=== PATIENT | female | born 2000 | race Asian ===

== ENCOUNTER 2023-08-12 11:44 | Outpatient (CLI) | payer BC, SELFPAY | END 2023-08-12 11:45 | disposition home or self-care (01) | PROVIDERS: Visit Provider Obstetrics & Gynecology | DX: Z34.91 Encounter for supervision of normal pregnancy, unspecified, first trimester (principal); R35.0 Frequency of micturition | CPT/HCPCS: 84144; 84443; 84702; 86592; 86703; 86704; 86706; 86762; 86787; 86803; 86850; 86900; 86901; 87086; 87340 ==

== ENCOUNTER 2023-08-18 14:48 | Outpatient (CLI) | payer BC, SELFPAY ==
--- NOTE | 2023-08-18 15:00 | US_ITS ---
Patient: STANISLAW ENGLE Facility:?[facility] Patient ID:?[id number] Site Patient ID:?[id number]. Site :?2000 Study:?US-OB Pelvis TRANSVAGINAL-08/18/2023 3:27:32 PM Ordering Physician:?IVET URENA Final Report: INDICATION: . Recent miscarriage. TECHNIQUE: Transabdominal and transvaginal ultrasound examination of the pelvis was performed. Grayscale and color Doppler images were obtained. COMPARISON: None. FINDINGS: Uterus: Intrauterine gestational sac with mean sac diameter of 1.4 cm common compatible with estimated gestational age of 6 weeks and 2 days. Yolk sac: Within normal limits. heart tones: Present. 97 beats per minute. Bunkie-rump length: 3 mm, compatible with an estimated gestational age of 5 weeks and 6 days. Endometrium: Unremarkable Right Ovary: Measures 4.2 x 2.7 x 3.4 cm. Corpus luteal cyst. Otherwise, unremarkable. Normal arterial and venous flow on color Doppler imaging. Left ovary: Measures 3.6 x 1.5 x 2.0 cm. No suspicious masses. Normal arterial and venous flow on color Doppler imaging. Cul-de-sac: No free fluid. IMPRESSION: Single viable intrauterine with estimated gestational age of 5 weeks and 6 days by crown-rump length. Estimated due date of 04/13/2024. Dictated by Xavier Olivas MD @ 08/18/2023 11:20:29 PM Signed by:?Xavier Olivas MD @08/18/2023 11:20:29 PM (Electronic Signature)
== END 2023-08-18 14:49 | disposition home or self-care (01) ==
LOC: US 14:48
PROVIDERS: Visit Provider Obstetrics & Gynecology
DX: N96 Recurrent pregnancy loss (principal); Z32.00 Encounter for pregnancy test, result unknown; Z34.91 Encounter for supervision of normal pregnancy, unspecified, first trimester; Z3A.01 Less than 8 weeks gestation of pregnancy
CPT/HCPCS: 76817

== ENCOUNTER 2023-09-06 16:44 | Outpatient (CLI) | payer BC, SELFPAY ==
--- NOTE | 2023-09-06 17:00 | US_ITS ---
Patient: STANISLAW ENGLE Facility:?[facility] Patient ID:?[id number] Site Patient ID:?[id number]. Site :?2000 Study:?US-OB Pelvis OB TV-09/06/2023 5:43:47 PM Ordering Physician:SPEEDY DUTTON Final Report: INDICATION: Follow-up viability COMPARISON: 08/18/2023 TECHNIQUE: Real-time nicole-scale imaging of the pelvis was performed. FINDINGS: Sonographic imaging demonstrates a single living intrauterine gestation. The embryo demonstrates a regular cardiac rate measuring 180 beats per minute. The embryo`s crown-rump length measurement of 2.1 cm corresponds to a gestational age of 8 weeks 5 days with a sonographic due date of 04/12/2024. There is a normal-appearing yolk sac. There are no gross abnormalities noted within the embryo at this early state of development. The gestational sac has a normal appearance. There is no evidence of a perigestational hemorrhage. The amount of fluid within the sac appears appropriate for gestational age. The cervix is closed. The myometrium appears normal. The ovaries are of normal size. Corpus luteal cyst right ovary. There are no suspicious fluid collections noted in the cul-de-sac. IMPRESSION: Normal first trimester OB ultrasound exam. Gestational age calculated at 8 weeks 5 days with a sonographic due date of 04/12/2024. Dictated by Rodo Yusuf MD @ 09/07/2023 10:37:51 AM Signed by:?Rodo Yusuf MD @09/07/2023 10:37:51 AM (Electronic Signature)
== END 2023-09-06 16:45 | disposition home or self-care (01) ==
LOC: US 16:45
PROVIDERS: Visit Provider Advanced Practice Midwife
DX: Z34.91 Encounter for supervision of normal pregnancy, unspecified, first trimester (principal); Z3A.08 8 weeks gestation of pregnancy
CPT/HCPCS: 76817; 87086

== ENCOUNTER 2023-11-22 13:45 | Outpatient (CLI) | payer BC, SELFPAY ==
--- NOTE | 2023-11-22 14:00 | US_ITS ---
Patient: STANISLAW ENGLE Facility:?[facility] Patient ID:?[id number] Site Patient ID:?[id number]. Site :?2000 Study:?US-OB Pelvis OB ANATOMY-11/22/2023 3:14:00 PM Ordering Physician:SPEEDY DUTTON CNM Final Report: OB ULTRASOUND EVER by US: 04/13/2024. GA: 19 w, 4 d. INDICATION: anatomy. COMPARISON: 09/06/2023. FINDINGS: position: Vertex. Cervix: Visualized. Technique: Transabdominal. Length of closed cervix: 3.6 cm. Placenta/cord: Posterior. Technique: Transabdominal. Placenta tip to internal OS: 6.4 cm. Umbilical Cord: 3-vessel cord. Placenta insertion: Central. Amniotic Fluid: 5.6 cm SDP SURVEY: Observed Structures Cerebellum: Yes. 2.1 cm; 21 w 1 d. Cisterna Magna: Yes. 4.4 mm. Nuchal Fold: Yes. 4.2 mm. Lateral Ventricle: Yes. 6.5 mm. CSP: Yes. Midline Falx: Yes. Choroid Plexus: Yes. Spine: Yes. Stomach: Yes. Abd Cord Insertion: Yes. Urinary Bladder: Yes. Kidneys: Yes. Diaphragm: Yes. Nose/lips: Yes. Orbital view: Yes. Profile: Yes. Upper Extremities: Yes. Lower Extremities: Yes. Hands: Yes. Feet: Yes. Four-Chamber Heart: Yes. LVOT: Yes. RVOT: Yes. 3VV: Yes. 3VTV: Yes. BPD: 4.7 cm. 20 w 2 d, 80%. HC: 17.8 cm. 20 w 2 d, 73%. AC: 14.0 cm. 19 w 3 d, 39%. FL: 2.9 cm. 19 w 0 d, 24.7%. FL/AC: 21.0%. HC/AC Ratio: 1.27. Heart rate: 147 beats per minute. age by this US: 20 w 0 d. EVER by this US: 04/10/2024. EFW: 288.38 g. Weight: 10 oz. Percentile by EVER: 34%. IMPRESSION: 1. Measurements are consistent with dates. Good interval growth since prior exam. 2. Normal anatomic survey. Jeremy Hoang M.D. Body/Diagnostic Radiologist [email or web address] MARY JO/ameena D& Transcribed: 12:59 p.mEnrike lindquist/Dictated by: Jeremy Hoang MD @ 11/23/2023 10:27:00 AM Signed by:?Jeremy Hoang MD @11/23/2023 2:54:28 PM (Electronic Signature)
== END 2023-11-22 13:46 | disposition home or self-care (01) ==
LOC: US 13:46
PROVIDERS: Visit Provider Advanced Practice Midwife
DX: Z34.92 Encounter for supervision of normal pregnancy, unspecified, second trimester (principal); Z3A.19 19 weeks gestation of pregnancy
CPT/HCPCS: 76805

== ENCOUNTER 2024-01-08 12:08 | Outpatient (CLI) | payer BC, SELFPAY ==
[2024-01-08] VITALS (12 sets, daily range): BP systolic 130–136; BP diastolic 71–80; PULSE 93–110; RESP 16; TEMP 36.5; O2SAT 96–97
[2024-01-08] MEDS: CALCIUM CARBONATE 500 MG CHEW PO (13:13)
[2024-01-08 13:32] LABS: Hematocrit 33.2 % (33.0-51.0); Hemoglobin* 11.2 gm/dL (12.0-16.0); Mean Corpuscular HGB Conc 34 gm/dL (32-36); Mean Corpuscular Hemoglobin 31 pg (26-34); Mean Corpuscular Volume 93 fL (80-100); Platelet Count* 218 K/uL (140-440); Red Blood Count 3.57 m/uL (4.00-5.20); White Blood Count* 10.47 K/uL (4.50-11.00)
[2024-01-08 13:34] LABS: Alanine Aminotransferase* 20 U/L (4-35); Aspartate Amino Transferase* 20 U/L (12-35); Blood Urea Nitrogen* 9 mg/dL (5-24); Creatinine* 0.5 mg/dL (0.5-1.5); Estimated Glomerular Filt Rate 134 ml/min
[2024-01-08 13:37] LABS: Total Protein Urine 16 mg/dL
[2024-01-08 13:38] LABS: Creatinine Urine 107.5 mg/dL; Protein Creatinine Ratio Urine 0.15 (0-0.19)
[2024-01-08 13:39] LABS: Slide Review Reflex No
--- NOTE | 2024-01-08 14:40 | PC.OBNST ---
NST Note NST Note Start: 01/08/24 12:02 Freq: ONCE Status: Active Protocol: Document 01/08/24 13:45 LUIS (Rec: 01/08/24 14:40 LUIS Desktop) NST Note 3 Para (# of births) 0 EDC 04/13/24 Gestational Age In Weeks & Days 26 Weeks & 2 Days Patient Presented with Complaint(s) of Headache,Other Other Complaints Dizziness/Fatigue Reactive Yes Appropriate for Gestational Age Yes CHARLENE Pack, RNC Date 01/08/24 Reactive Yes Appropriate for Gestational Age Yes CHARLENE Gloria, RNC Date 01/08/24 OB NST charge Yes Complete NST Note via Write Note Yes The provider's electronic signature indicates the NST is reactive/appropriate for gestational age. *Note to provider: If an addendum is required, open the patient's chart and click on the note under the Nurse/Allied Health tab.
== END 2024-01-08 14:10 | disposition home or self-care (01) ==
LOC: OB OUT 12:09 → OB 12:14
PROVIDERS: Visit Provider Advanced Practice Midwife
DX: O26.892 Other specified pregnancy related conditions, second trimester (principal); R51.9 Headache, unspecified; R53.83 Other fatigue; Z3A.26 26 weeks gestation of pregnancy
CPT/HCPCS: 36415; 59025; 82565; 82570; 84156; 84450; 84460; 84520; 85027; G0463; A9270

== ENCOUNTER 2024-01-24 10:01 | Outpatient (CLI) | payer BC, SELFPAY | END 2024-01-24 10:02 | disposition home or self-care (01) | LOC: NFLDREF 01-26 09:48 | PROVIDERS: Visit Provider Advanced Practice Midwife | DX: Z34.93 Encounter for supervision of normal pregnancy, unspecified, third trimester (principal) | CPT/HCPCS: 86592 ==

== ENCOUNTER 2024-03-19 10:43 | Outpatient (CLI) | payer BC, SELFPAY ==
[2024-03-20 10:49] LABS: Strep B DNA Probe POSITIVE (Negative)
[2024-03-20 12:47] LABS: Strep B Susceptibility Needed? No
== END 2024-03-19 10:44 | disposition home or self-care (01) ==
PROVIDERS: Visit Provider Advanced Practice Midwife
DX: Z34.93 Encounter for supervision of normal pregnancy, unspecified, third trimester (principal); O99.713 Diseases of the skin and subcutaneous tissue complicating pregnancy, third trimester; L29.9 Pruritus, unspecified; R35.0 Frequency of micturition; Z3A.36 36 weeks gestation of pregnancy
CPT/HCPCS: 82239; 84450; 84460; 87081; 87653

== ENCOUNTER 2024-03-26 09:45 | Outpatient (CLI) | payer BC, SELFPAY | END 2024-03-26 09:46 | disposition home or self-care (01) | PROVIDERS: Visit Provider Advanced Practice Midwife | DX: Z34.83 Encounter for supervision of other normal pregnancy, third trimester (principal) | CPT/HCPCS: 82565; 82570; 84156; 84450; 84460; 84520 ==

== ENCOUNTER 2024-04-07 22:08 | Inpatient (IN) | payer BC, SELFPAY ==
[2024-04-07] VITALS (15 sets, daily range): BP systolic 126–144; BP diastolic 61–86; PULSE 82–102; RESP 16; TEMP 36.7–37.1; O2SAT 97
[2024-04-07 19:33] LABS: Hematocrit 35.3 % (33.0-51.0); Hemoglobin* 11.3 gm/dL (12.0-16.0); Mean Corpuscular HGB Conc 32 gm/dL (32-36); Mean Corpuscular Hemoglobin 29 pg (26-34); Mean Corpuscular Volume 91 fL (80-100); Platelet Count* 200 K/uL (140-440); Red Blood Count 3.87 m/uL (4.00-5.20); White Blood Count* 10.02 K/uL (4.50-11.00)
[2024-04-07 19:34] LABS: Slide Review Reflex No
[2024-04-07 19:54] LABS: Alanine Aminotransferase* 14 U/L (4-35); Aspartate Amino Transferase* 21 U/L (12-35); Blood Urea Nitrogen* 13 mg/dL (5-24); Creatinine* 0.5 mg/dL (0.5-1.5); Estimated Glomerular Filt Rate 134 ml/min
[2024-04-07 20:27] LABS: Total Protein Urine 8 mg/dL
[2024-04-07 20:28] LABS: Creatinine Urine 113.5 mg/dL; Protein Creatinine Ratio Urine 0.07 (0-0.19)
--- NOTE | 2024-04-07 22:03 | P.LDBA_ITS ---
Subjective History of Present Illness Date Seen: 04/07/24 Narrative: Anitha is being admitted to Labor and Delivery for induction of labor. She is a 23 year old at 39.1 weeks gestation. Her full history and physical was dictated by Zhang Jacob CNM on 03/26/24. Please see this for details. Anitha presented earlier today with complaints of decreased movement and possibly leaking fluids. She was AmniSure negative and had a reactive NST at that time. She also complained of elevated blood pressures on her home blood pressure cuff, a headache, and seeing spots. Her blood pressures and labs were normal at that time and she was cleared for discharge. She returns this evening with continued intermittent headaches, occasional spots in her vision with blurred in her right eye, and epigastric pain that radiates to her right posterior shoulder. Her face, hands and feet are edematous but not pitting. She also complains of SOB that is intermittent and occurs at rest and with activity. She states that all of these symptoms have been happening for the last couple of days. Labs were aga in normal and blood pressures 130's/60's. We discussed that being normotensive and normal labs that she doesn't meet criteria at this time for gestational hypertension or preeclampsia. However with her symptoms and being over 39 weeks that an induction could be considered. Also gave her the option of returning home with close monitoring of symptoms and returning tomorrow for a blood pressure check. After questions were answered and she discussed with her partner they decided they would like to stay for an induction starting this evening. SVE was 0.5/thick/-3. Discussed options of a cook catheter, Cytotec and Pitocin. Risks and benefits or each method were discussed. She would like to proceed with vaginal Cyotec for IOL and will consider following with Pitocin titration if needed. She is shira occasionally but only a few she is feeling as more uncomfortable with the rest begin a tightening. Specific Issues/Plans : Max 1. Hx asthma, hasn't used an inhaler in many years. 2. Hx depression. Not on medications and no current concerns. 3. SAB after a chemical . Taking ASA. 4. Allergic to ibuprofen and acetaminophen. 5. Near syncope at 26 weeks c/o MUJICA for 3 days- Rx reglan for home PreE labs WNL, BPs mildly elevated 130/80's 6. New onset of pruritus at 36 weeks on palms and soles of feet. Labs AST-22, ALT-15 bile acids-4 7. GBS positive Needs pap PP. OB - Problem Based A/P Additional Plan (1) Encounter for induction of labor: Status: Acute (2) 39 weeks gestation of : Status: Acute Plan ASSESSMENT:? at 39.1 weeks gestation? GBS positive? complicated by: remote history of asthma, recurrent SAB, GBS positive, headache/visual disturbance without diagnosis? Elective IOL? Blood type:?A+ ?? PLAN:? 1. Antibiotic prophylaxis treatment per protocol. Will begin treatment with active labor or ROM.? 2. Reviewed risks and benefits of IOL with pitocin vs cytotec vs Cook catheter. Pt prefers cytotec. Pitocin to follow if needed.? 3. Desires water . Consent signed. Hep C negative.? 4. Candidate for analgesia of choice. Planning unmedicated .? 5. Monitor blood pressures. Consider repeating labs if continue to increase.? 6. Anticipate ? 7. Expectant management at this time.? 8. IV placement not needed at this time. Consider with increases blood pressures or changes in patient condition. Low threshold for considering placement. 9. Monitoring per Cytotec policy at this time. Delivery/Labor/Induction Plan Plan: induction Induction method: per misoprostol protocol OB Result Labs Blood Type: A (+) positive GBS Status: positive OB Exam Physical Exam Vital signs: Temp Pulse Resp BP 98.7 F 85 16 144/71 H 04/07/24 19:18 04/07/24 21:44 04/07/24 19:18 04/07/24 21:44 Narrative: Psychiatric:? Alert and oriented x3? HEENT:? Normocephalic, atraumatic? Neck:? Supple without adenopathy or thyromegaly? Lungs:? Clear to auscultation bilaterally? Heart:? Regular rate and rhythm, no murmur, rub or gallop? Abdomen:? Soft, nontender, and gravid? Extremities:? No erythema, 2+ edema? Detailed Labor and Delivery Exam Patient Gravid: Yes Dilation (cm): 0 (0.5) Cervix position: mid Consistency: medium Contraction Frequency: 4-9 Contraction intensity: Mild Fetus (Single) Station: -3 Amniotic Membrane Status: intact Heart Rate Baseline: 135 Monitor Accelerations: Present Monitor Decelerations: None [place] Paver Operator Variability: Moderate (6-25) (occaional marked variability )
[2024-04-07] MEDS: miSOPROStoL 25 MCG/0.25 TABLET VAGINAL (23:11)
[2024-04-07] MEDS: CALCIUM CARBONATE 500 MG CHEW PO (23:36)
[2024-04-08] VITALS (15 sets, daily range): BP systolic 103–141; BP diastolic 61–93; PULSE 74–96; RESP 15–17; TEMP 36.8–37.2; O2SAT 99; BMI 40.1
[2024-04-08] MEDS: miSOPROStoL 25 MCG/0.25 TABLET VAGINAL ×2 (02:13→05:17)
[2024-04-08] MEDS: ONDANSETRON ODT 4 MG TAB PO ×2 (05:05→21:00)
--- NOTE | 2024-04-08 11:19 | P.OBPN_ITS ---
Subjective Time Seen by Provider: 11:00 Date Seen: 04/08/24 Narrative: Anitha received multiple doses of Cytotec overnight and has been shira regularly this morning. The last dose was held as she was shira every 2-4 minutes although she is only feeling some of them uncomfortably and the rest only feel as tightening. A SVE was performed and she was found to be 1/40/-3. She was given the option to wait for another 1-2 hours to see if she contractions spaced enough to consider another dose. Also discussed pivoting and trying a cook catheter or Pitocin titration. Risks/benefits of each were discussed and questions answered. After discussion with her partner she decided to try Pitocin. Objective Vital Signs: Last Vital Signs Temp 98.2 F 04/08/24 08:05 Pulse 93 04/08/24 08:05 Resp 16 04/08/24 08:05 BP 130/73 04/08/24 08:05 Pulse Ox 97 04/07/24 23:03 Pelvic Exam Dilation (cm): 1 Effacement (%): 40 Station: -3 Contractions Monitor mode: External Contraction Frequency: 2-4 Contraction pattern: Regular Contraction intensity: Mild Assessment Assessment: induction ongoing Station: -3 Heart Rate Baseline: 145 Residential Variability: Moderate (6-25) Monitor Accelerations: Present Monitor Decelerations: None Plan Plan: ASSESSMENT:? at 39.2 weeks gestation? GBS positive? complicated by: remote history of asthma, recurrent SAB, GBS positive, headache/visual disturbance without diagnosis? Elective IOL? Blood type:?A+ ?? PLAN:? 1. Antibiotic prophylaxis treatment per protocol. Will begin treatment with active labor or ROM.? 2. Reviewed risks and benefits of continuing IOL with cytotec switching to Cook catheter or Pitocin titration. Pt prefers to switch to Pitocin titration.? 3. Desires water . Consent signed. Hep C negative.? 4. Candidate for analgesia of choice. Planning unmedicated .? 5. Monitor blood pressures. Consider repeating labs if continue to increase.? 6. Anticipate ? 7. Expectant management at this time.? 8. IV placement for Pitocin administration. 9. Monitoring per Pitocin policy at this time.
[2024-04-08] MEDS: LACTATED RINGERS 1000 ML 1,000 ML 125 ML IV (12:48)
[2024-04-08] MEDS: OXYTOCIN 30 unit/500 ML in NS 30 UNIT/500 ML BAG IVPB (12:48)
[2024-04-08 15:44] LABS: Basophils Absolute Auto 0.02 K/uL (0.00-0.30); Basophils Percent Auto 0.2 % (0.0-3.0); Eosinophils Absolute Auto 0.32 K/uL (0.00-0.50); Eosinophils Percent Auto 3.4 % (0.0-7.0); Hematocrit 36.4 % (33.0-51.0); Hemoglobin* 11.6 gm/dL (12.0-16.0); Immature Granulocytes Abs Auto 0.02 K/uL (0.00-0.30); Immature Granulocytes Pct Auto 0.2 %; Lymphocytes Percent Auto 17.4 % (20-44); Mean Corpuscular HGB Conc 32 gm/dL (32-36); Mean Corpuscular Hemoglobin 29 pg (26-34); Mean Corpuscular Volume 92 fL (80-100); Monocytes Percent Auto 6.8 % (0.0-11.0); Neutrophils Absolute Auto 6.79 K/uL (1.7-7.0); Platelet Count* 203 K/uL (140-440); Red Blood Count 3.96 m/uL (4.00-5.20); White Blood Count* 9.43 K/uL (4.50-11.00)
[2024-04-08 15:54] LABS: Slide Review Reflex No
--- NOTE | 2024-04-08 19:18 | P.OBPN_ITS ---
Subjective Time Seen by Provider: 19:15 Date Seen: 04/08/24 Narrative: Anitha has been continuing with Pitocin titration and was at 10mU when her IV infiltrated and the RN had difficulty getting a new one started. Since it was going to have to be restarted at a lower dose the decision was made to recheck and consider changing course if no change. Her cervix was unchanged. We again discussed continuing Pitocin titration, returning to Cytotec or cook catheter. She would like to switch to the cook catheter. We also discussed adding low dose Pitocin titration and she was agreeable to this. Risks and benefits were discussed and questions answered. The cook was placed with 60mL in each and she tolerated the procedure very well. Will plan to restart the Pitocin at 1mU around 2100. Encouraged therapeutic rest overnight. Objective Vital Signs: Last Vital Signs Temp 98.5 F 04/08/24 18:23 Pulse 88 04/08/24 18:23 Resp 17 04/08/24 18:23 BP 132/72 04/08/24 18:23 Pulse Ox 97 04/07/24 23:03 Pelvic Exam Dilation (cm): 1 Effacement (%): 40 Station: -3 Contractions Monitor mode: External Contraction Frequency: 2-5 Contraction pattern: Irregular Contraction intensity: Mild Pitocin Rate (mU/min): 0 Assessment Assessment: induction ongoing Station: -3 Status: Category l Heart Rate Baseline: 135 Shelter Variability: Moderate (6-25) Monitor Accelerations: Present Monitor Decelerations: None Plan Plan: ASSESSMENT:? at 39.2 weeks gestation? GBS positive? complicated by: remote history of asthma, recurrent SAB, GBS positive, headache/visual disturbance without diagnosis? Elective IOL? Blood type:?A+ ?? PLAN:? 1. Antibiotic prophylaxis treatment per protocol. Will begin treatment with active labor or ROM.? 2. Reviewed risks and benefits of continuing IOL by restarting Pitocin after IV access is obtained vs switching to Cook catheter or Cytotec. Pt prefers to switch to Cook catheter with low dose Pitocin.? 3. Desires water . Consent signed. Hep C negative.? 4. Candidate for analgesia of choice. Planning unmedicated .? 5. Monitor blood pressures. Consider repeating labs if continue to increase.? 6. Anticipate ? 7. Expectant management at this time.? 8. Replace IV access. 9. Continuous monitoring per policy.
[2024-04-08] MEDS: hydrOXYzine pamoate 25 MG CAPSULE 100 MG PO (20:52)
[2024-04-08] MEDS: MORPHINE 10 MG/ML inj IM (20:52)
[2024-04-09] VITALS (68 sets, daily range): BP systolic 101–146; BP diastolic 52–92; PULSE 85–156; RESP 16–19; TEMP 36.6–37.5; O2SAT 83–100
[2024-04-09] MEDS: LACTATED RINGERS 1000 ML 1,000 ML 75 ML IV (03:32)
[2024-04-09] MEDS: AMPICILLIN 2 GM in 0.9 % SODIUM CHLORIDE Mini-bag 100 ML IVPB (07:51)
--- NOTE | 2024-04-09 08:48 | P.OBPN_ITS ---
Subjective Date Seen: 04/09/24 Narrative: Anitha is a 23 year old at 39 3/7 weeks gestation that presented on 04/07 to triage for evaluation. She had a mild range blood pressure but no further ones. She was given the option of d/c home vs elective IOL. She choose to stay for IOL. During her induction course, she had now met criteria for GHTN based on elevated BP's more than 4 hours apart. Her IOL was started with vaginal cytotec, she received a total of 3 doses before switching to pitocin. Last evening, she lost IV access and they switched to cook catheter before replacing the IV. The pitocin was then restarted. Her cook was removed this morning. Upon removal, she had a large gush of fluid and SROM'd clear fluid. She is coping well with labor and supported in labor by her , Canelo. OB PROBLEM LIST: 1. Hx asthma, hasn't used an inhaler in many years. 2. Hx depression. Not on medications and no current concerns. 3. SAB after a chemical . Taking ASA. 4. Allergic to ibuprofen and acetaminophen. 5. Near syncope at 26 weeks c/o MUJICA for 3 days- Rx reglan for home PreE labs WNL, BPs mildly elevated 130/80's 6. New onset of pruritus at 36 weeks on palms and soles of feet. Labs AST-22, ALT-15 bile acids-4 7. GBS positive Objective Exam: Objective: Constitutional: Alert and oriented x3, mild distress, coping well Vital signs stable, see nurse documentation Abdomen: gravid, contractions palpate mild/moderate with contractions and soft between Cervix: 3 cm/80%/-1 station/vertex; SROM clear fluid NST: 140 bpm/moderate variability/15x15 accelerations/no decelerations/contractions every 2-3 minutes Vital Signs: Last Vital Signs Temp 97.8 F 04/09/24 07:41 Pulse 116 H 04/09/24 08:34 Resp 17 04/08/24 18:23 BP 134/75 04/09/24 08:34 Pulse Ox 99 04/08/24 20:18 Pelvic Exam Dilation (cm): 1 Effacement (%): 40 Station: -3 Contractions Monitor mode: External Contraction pattern: Irregular Contraction intensity: Mild Pitocin Rate (mU/min): 0 Assessment Station: -3 Status: Category l Heart Rate Baseline: 145 Monitor Accelerations: Present Monitor Decelerations: None Plan Plan: at 39.2 weeks gestation? GBS positive? complicated by: remote history of asthma, recurrent SAB, GBS positive, headache/visual disturbance without diagnosis? Initially elective IOL but now medically indicated by GHTN diagnosis Blood type:?A+ ?? PLAN:? 1. Routine intrapartum cares as ordered. Removed cook catheter, continue with Pitocin. SROM'd with removal of cook, clear fluid. Will continue with pitocin increase. 2. Monitoring per policy, continuous? 3. Planning unmedicated . Candidate for analgesia of choice, if desired.?Considering water . Consent signed. Hep C negative.? 4. Patient encouraged to reposition and ambulate to promote physiologic labor and .? 5. GBS prophylaxis initiated for GBS positive status. Will treat with antibi otics per protocol. 6. GHTN based on elevated BP more than 4 hours apart. Continue to monitor blood pressures. Consider repeating labs if sustained elevated BP's. 7. Anticipate ?
[2024-04-09] MEDS: AMPICILLIN 1 GM in 0.9 % SODIUM CHLORIDE Mini-bag 100 ML IVPB ×3 (11:57→20:18)
[2024-04-09] MEDS: SODIUM CHLORIDE 0.9 % (FLUSH) 10 ML SYRINGE IVF (15:56)
[2024-04-09] MEDS: fentaNYL 100 MCG/2 ML inj IVP (15:56)
[2024-04-09] MEDS: ONDANSETRON 2 MG/ML inj 4 MG IV ×2 (16:02→22:50)
[2024-04-09] MEDS: ROPIVACAINE 0.2% 100 ml 100 ML 12 MG EPIDURAL (16:10)
[2024-04-09] MEDS: BUPIVACAINE 0.25% PF 10 ML 10 ML ML EPIDURAL (16:32)
--- NOTE | 2024-04-09 16:32 | P.ANBPRC_ITS ---
[facility] Medical History (Updated 04/07/24 @ 22:22 by Antonia Jacob CNM) History of depression ?Z86.59 - Personal history of other mental and behavioral disorders (ICD-10) Surgical History (Updated 09/06/23 @ 18:27 by Antonia Jacob CNM) [place] teeth extracted ?K08.409 - Partial loss of teeth, unspecified cause, unspecified class (ICD- 10) Family History (Updated 09/06/23 @ 18:29 by Antonia Jacob CNM) Brother No problems noted. Mother High blood pressure Gestational diabetes mellitus Paternal Grandmother Thyroid disease Social History (Updated 09/07/23 @ 14:27 by Antonia Jacob CNM) Narrative: SOCIAL Education: some college Work: realtor Partner: Canelo , [employer] Lives with: Pets: cat Abuse: Denies past, partner present Special Diet: Denies Ok with a blood transfusion: yes Culture or confucianist beliefs: denies RISK FACTORS Exercise Times/wk: walk 3-4x/week Depression/Anxiety: distant hx, denies current concerns NANCY: 0 PHQ 9: 0 Seat Belt Use: Routinely Smoking: Denies past/present Alcohol/day: Denies while Caffeine: none currently Drug Use: Denies past/present Chicken Pox: Yes as a child MRSA: Denies What is your current living situation?: I presently have a place to live Problems where you live: no known problems In the past 12 months, utilities in danger of being shut off: no In past 12 months, lack of transportation kept you from medical appts, meetings, work, or getting things needed for daily living: no In the past 12 mos, have been you worried that your food would run out before you had money to buy more?: never true In the past 12 mos, the food you bought just didn't last and you didn't have money to buy more?: never true Smoking Status: Never smoker How often does anyone, including family, friends and others, physically hurt you : never How often does anyone, including family, friends and others, insult or talk down to you: never How often does anyone, including family, friends and others, threaten you with harm: never How often does anyone, including family, friends and others, scream or curse at you: never Little interest or pleasure in doing things: not at all Feeling down, depressed, or hopeless: not at all Meds Home Medications and Allergies Home Medications ?Medication ?Instructions ?Recorded ?Confirmed ?Type aspirin 81 mg chewable tablet 81 mg PO QDAY 08/12/23 04/07/24 History docosahexaenoic acid 200 mg 1 mg PO QDAY 08/12/23 04/07/24 History capsule ( DHA) pyridoxine (vitamin B6) 10 mg 10 mg PO QDAY 11/22/23 04/07/24 History tablet B-complex with vitamin C 1 tab PO QDAY 12/20/23 04/07/24 History ferrous sulfate 325 mg (65 mg 325 mg PO Q OTHER DAY 01/24/24 04/07/24 History iron) tablet famotidine 20 mg tablet (Pepcid) 20 mg PO QDAY 03/26/24 04/07/24 History Allergies Allergy/AdvReac Type Severity Reaction Status Date / Time acetaminophen Allergy Mild Verified 04/09/24 07:57 ibuprofen Allergy Mild Verified 04/09/24 07:57 Results Labs Labs: Laboratory Results - last 24 hr 04/08/24 15:31 Blood Type A Positive Antibody Screen NEGATIVE Vital Signs Vital Signs: Last Vital Signs Temp 98.4 F 04/09/24 15:07 Pulse 107 H 04/09/24 16:31 Resp 18 04/09/24 15:07 BP 142/85 H 04/09/24 16:31 Pulse Ox 98 04/09/24 16:28 Weight: 114.078 kg Height: 167.64 cm Anesthesia Procedures Epidural Insertion Patient Location: OB Start Time: 16:00 Stop Time: 16:33 Start Date: 04/09/24 Stop Date: 04/09/24 Reason for Block: procedure for pain Patient Position: sitting Performed By: Rodrigo Robledo Preanesthetic Checklist: IV checked, risks and benefits discussed, monitors and equipment checked, pre-op evaluation, timeout performed and anesthesia consent Prep: chlorhexidine gluconate Monitoring: blood pressure monitoring, continuous pulse oximetry and heart rate Approach: midline Vertebral Space: lumbar (1-5) Epidural Technique: BRENT saline Needle Type: Tuohy needle Injection Technique: continuous catheter Needle gauge: 17 Needle Length (cm): 10 cm Needle Insertion Depth (cm): 7 Catheter Gauge: 19 Catheter Type: multi-orifice Catheter at skin depth (cm): 13 Test Dose Result: negative and lidocaine 1.5% with epinephrine 1 to 200,000
--- NOTE | 2024-04-09 16:40 | PM.OBPNL ---
Subjective Date Seen: 04/09/24 Narrative: Anitha is a 23 yo at 39 3/7 weeks gestation that is coping well with labor in the tub but has requested an epidural. She reports having some pressure but doesn't feel she can continue. She is supported in labor by her . She was escorted out of the tub and to the bed. Offered to recheck prior to epidural, SVE with consent and minimal change. Plan to proceed with epidural. Objective Exam: Objective: Constitutional: Alert and oriented x3, moderate distress, coping well Vital signs stable, see nurse documentation Abdomen: gravid, contractions palpate moderate with contractions and soft between Cervix: 5-6 cm/80%/-1 station/vertex NST: 145 bpm/moderate variability/15x15 accelerations/no decelerations/contractions every 2-4 minutes Vital Signs: Last Vital Signs Temp 98.3 F 04/09/24 12:00 Pulse 106 H 04/09/24 12:00 Resp 19 04/09/24 12:01 BP 134/78 04/09/24 12:00 Pulse Ox 99 04/08/24 20:18 Contractions Monitor mode: External Contraction pattern: Regular Contraction intensity: Moderate Plan Plan: at 39.2 weeks gestation? GBS positive? complicated by: remote history of asthma, recurrent SAB, GBS positive, headache/visual disturbance without diagnosis? Initially elective IOL but now medically indicated by GHTN diagnosis Blood type:?A+ ?? PLAN:? 1. Routine intrapartum cares as ordered. Continue with pitocin per protocol. 2. Monitoring per policy, continuous? 3. Comfy status post epidural placement, continue for pain management. 4. Patient encouraged to reposition to promote physiologic labor and .? 5. GBS prophylaxis initiated for GBS positive status. Will treat with antibiotics per protocol. 6. GHTN based on elevated BP more than 4 hours apart. Continue to monitor blood pressures. Consider repeating labs if sustained elevated BP's. 7. Anticipate ?
[2024-04-10] VITALS (22 sets, daily range): BP systolic 113–140; BP diastolic 58–91; PULSE 84–107; RESP 16–17; TEMP 36.6–37; O2SAT 96–98
[2024-04-10] MEDS: miSOPROStoL 800 MCG/4 TABLET PR (01:33)
[2024-04-10] MEDS: LIDOCAINE 1 % PF 30 ML INJECTION (01:34)
--- NOTE | 2024-04-10 01:43 | W.PM.OBVAGDE ---
OB Procedure Vag Delivery Mother Details Mother Details: The patient is a 23 year-old, 3, Para 0, admitted on 04/07/24 at Days gestation. Additional Details Amniotic Membrane Status: SROM Amniotic Membrane Rupture Date: 04/09/24 Amniotic Membrane Rupture Time: 07:40 Amniotic Membrane Fluid Description: Clear (Initially) and Meconium Stained (At time of delivery) Analgesia/Anesthesia Type: Epidural and Local Waterbirth: No Pitcoin: Yes Intrapartal Events: Labor Induction and Prolonged 2nd Stage >2.5 Hrs Labor Onset: 12:00 Complete: 21:45 Pushin:54 Heart: heart tones during second stage were reassuring with accelerations, moderate variability, and stable FHR. Occasional decelerations were note with return to baseline between, these were most notable in the last 15 minutes of pushing. Delivery Details Delivery Date: 04/10/24 Delivery Time: 00:58 Route of delivery: Gender: Male Viability: Alive; Heart Rate Present Position at Delivery: OA Delivery Details: Patient was admitted for induction of labor for GHTN. Her labor induction was started with cytotec then cook catheter with IV pitocin. Cook was removed yesterday am with SROM of clear fluid at 0740. She progressed with normally with pitocin. She used an epidural for pain relief which hinder her ability to push adequately initially because it was very dense. She slowly was able to feel pressure and pushed more adequately. Patient was complete at 2145 and pushing at 2154. Mec stained fluid was noted during pushing and peds was called to attend delivery. of a viable male at 0058 in semi-fowlers on the bed. Vertex delivered OA and rotated immediately to OP. No nuchal cord or shoulder. Body delivered easily and without incident. Infant passed to mothers abdomen, dry and stimulated for a weak cry. Cord was clamped and cut at <60 seconds and taken to the warmer for evaluation. Peds arrived at time of delivery. APGARS were 8 at one minute and 9 at five minutes respectively. Mouth was bulb suctioned. Intact placenta with a 3 vessel cord delivered spontaneously at 0102. Fundus firm. Vaginal laceration up right side with right periurethral identified and repaired in typical fashion. QBL 400 cc. Bladder I&O'd for 100 when bleeding was brisk. Bleeding improved, rectal cytotec given as prophylaxis. Mother and baby stable; mother plans to breastfeed. weight pending. 1 Minute Interval Total Score: 8 5 Minute Interval Total Score: 9 Additional Details Shoulder Dystocia: No Placenta Delivery Time: 01:02 Placental Delivery Description: Spontaneous Delivery repair: Vicryl Procedure Done: Global Blood Loss: 400 Laceration: Vaginal - 1st Degree (extended to right periurethral) Blood Loss Measurement Type: QBL Bakri Used: No Sponge/Need Count Correct: Yes Cord Vessel Description: 3 Vessels Event Summary Status: Mother and infant were stable after delivery. Disposition: floor
[2024-04-10 02:29] LABS: Hemoglobin* 11.4 gm/dL (12.0-16.0); Mean Corpuscular HGB Conc 33 gm/dL (32-36); Mean Corpuscular Hemoglobin 30 pg (26-34); Mean Corpuscular Volume 91 fL (80-100); Platelet Count* 211 K/uL (140-440); Red Blood Count 3.86 m/uL (4.00-5.20)
[2024-04-10 02:33] LABS: Slide Review Reflex No
[2024-04-10 02:46] LABS: Alanine Aminotransferase* 15 U/L (4-35); Aspartate Amino Transferase* 29 U/L (12-35); Blood Urea Nitrogen* 12 mg/dL (5-24); Creatinine* 0.5 mg/dL (0.5-1.5); Est. Creatinine Clearance* 162.42; Estimated Glomerular Filt Rate 134 ml/min
[2024-04-10] MEDS: IBUPROFEN 600 MG TABLET PO ×4 (03:30→22:02)
[2024-04-10] MEDS: DOCUSATE SODIUM 100 MG CAPSULE PO (09:38)
[2024-04-10 13:01] LABS: Rapid Plasma Reagin (RPR) Non Reactive (Non Reactive)
--- NOTE | 2024-04-10 14:12 | PM.ANPOST ---
Post Anesthesia Note Post Anesthesia Note Patient seen: Inpatient Respiratory Status: adequate Cardiovascular Status: adequate Mental Status: baseline Pain: adequate Temp: baseline Anesthetic awareness: N/A Complications: none Follow care: none
[2024-04-11 03:00] VITALS: BP 106/72; PULSE 90; RESP 16; TEMP 36.6; O2SAT 97
[2024-04-11] MEDS: IBUPROFEN 600 MG TABLET PO (03:55)
--- NOTE | 2024-04-11 07:26 | P.DS_ITS ---
DS: Providers Provider Date Seen: 04/11/24 Date of admission: 04/07/24 22:08 Primary care physician: Not a Local Provider Admitting Clinician: Antonia Jacob CNM Attending Physician on discharge: Leslye WILSON Date of Discharge: 04/11/24 DS: Diagnosis Discharge Diagnosis (1) (normal spontaneous vaginal delivery): Status: Acute (2) Vaginal laceration: Status: Acute (3) care and examination of lactating mother: Status: Acute (4) Vaginal hematoma: Status: Acute Exam Narrative: Exam Narrative: GENERAL APPEARANCE:? normal affect, alert, no distress MOOD:? appropriate CHEST:? clear to auscultation HEART:? regular rate and rhythm ABDOMEN:? soft, non-tender the uterine fundus is 2 cm below Umbilicus, Midline and is appropriate for the stage of recovery. PERINEUM:? mild edema of the perineum, there is a Perineal Laceration that is well approximated. Vaginal Hematoma not visualized. EXTREMITIES:? normal and minimal edema Const: Vital Signs, click to edit/add: Vital Signs - 24 hr 04/10/24 08:35 04/10/24 12:14 04/10/24 16:17 Temperature 97.9 F 98.0 F 98.4 F Pulse Rate [Pulse Oximeter] 92 107 H 94 Respiratory Rate 16 16 16 Blood Pressure [Le ft Arm] 122/85 113/69 123/78 Pulse Oximetry 97 97 96 Oxygen Delivery Me thod Room Air Room Air 04/10/24 22:00 04/11/24 03:00 Temperature 98.4 F 97.8 F Pulse Rate [Pulse Oximeter] 84 90 Respiratory Rate 16 16 Blood Pressure [Le ft Arm] 115/81 106/72 Pulse Oximetry 96 97 Oxygen Delivery Me thod Room Air Room Air OB - DS: Summary Hospital Course Hospital Course: Anitha is a 23 y.o. G 3 P 1021 who was admitted to [facility] for IOL for GHTN.? She had a NVD that was uncomplicated, but a vaginal hematoma was noted with no concerns . She has remained normotensive with no complaints of MUJICA, vision changes or RUQ pain. The patient feels well.? The pain is well controlled with current medications.? She has no new complaints.? She is breast feeding and reports things are going well,but would like to see before discharge. the patient has done well.? Vitals have been stable.? She has remained afebrile.? Has a good appetite, is tolerating a general diet.? She is voiding without difficulty.? She is passing gas and has not had a bowel movement.? She is ambulating and denies any dizziness.? Has small amount of rubra lochia. She is planning condoms for prevention.? ?? Problems: none, no concerns with vaginal hematoma? Discharge home with baby.? Follow up in 2 weeks and 6 weeks.? , may see if needed? Hgb 11.4. ? GHTN diagnosed by elevated BP greater than 4 hours apart, normotensive postp artum. signs and symptoms to report reviewed.? Labs WNL or stable with trending? Follow up for BP check in 3-5 days.? Call for signs/symptoms of preeclampsia? Peripartum Data delivery method: Vaginal Laceration description: Vaginal - 2nd Degree (and right periurethral- repaired) Episiotomy description: None complications: none (No issues with vaginal hematoma) [place] Gender: Male Discharge Plan: Home Status at Discharge Overall status at discharge: patient is progressing back to baseline Time Spent with Patient Time attestation: Total time spent providing and/or coordinating discharge services: Time spent: Less than 30 minutes Discharge Plan Discharge Disposition: Home, Self-Care Date of Admission: 04/07/24 22:08 Attending Provider on Discharge: Janet Sandoval Primary Care Provider: Provider,Not a Local Condition: Stable Anticipated Discharge Date/Time: 04/11/24 12:00 Discharge Medications: New docusate sodium 100 mg Capsule 100 mg PO DAILY Qty: 60 0RF ibuprofen 600 mg Tablet 600 mg PO Q6H PRNQty: 100 0RF Continued pyridoxine (vitamin B6) 10 mg tablet 10 mg PO QDAY B-complex with vitamin C Tablet 1 tab PO QDAY DHA 200 mg capsule 1 mg PO QDAY Discontinued famotidine [Pepcid] 20 mg tablet 20 mg PO QDAY aspirin 81 mg tablet,chewable 81 mg PO QDAY ferrous sulfate 325 mg (65 mg iron) tablet 325 mg PO Q OTHER DAY Discharge Orders: Discharge Order (Routine); Ordered 04/11/24 Ordered By: Janet Sandoval Patient Education: OB Care, OB Vaginal/Breast Feeding Additional Instructions: Discharge instructions were reviewed with the patient including signs and symptoms of infection and home going medications Nothing vaginally for 6 weeks: no tampons or intercourse Do not drive while taking narcotic pain medication(s) Off Work or School for 6 weeks Symptoms to report to doctor: * Bleeding that saturates more than one pad per hour * Passing clots larger than the size of a golf ball * Pain not relieved by prescribed medication * Fever above 100.4 degrees Fahrenheit * A foul vaginal odor * Difficulty in emotions, mood, and functions * Thoughts of hurting yourself and/or * Painful, reddened area in your breast * Any drainage, redness, or tenderness in your IV/epidural site * Severe headache that doesn't improve after taking medications * Changes in vision, including temporary loss of vision, blurred vision, and/or light sensitivity * Upper abdominal pain (usually under ribs on the right side) * Decrease in urination or painful, frequent urinating * Chest pain * Shortness of breath * Tenderness or pain with redness and/swelling in the calf(s) of your leg 2-week visit: discuss infant feeding concerns, review control options and screen for anxiety/depression. 6-week visit for an annual exam. consultation services are available to all mothers and babies for the first year after delivery.? To make an appointment, please call [phone]. For pain control of perineum, breast and pelvic pain, take 600 mg Ibuprofen every 6 hours as needed by mouth. A heating pad can also be used for your abdomen or breasts.? Activity Level: Activity as Tolerated Discharge Diet: Regular Follow Up Appointments: [facility] [Provider Group] Forms: MyHealth Info Instructions
[2024-04-11 08:14] VITALS: BP 125/84; PULSE 89; RESP 16; TEMP 36.7; O2SAT 97
== END 2024-04-11 13:40 | disposition home or self-care (01) | DRG 560 ==
LOC: OB OUT 22:08 → OB 22:08
PROVIDERS: Advanced Practice Midwife; Admitting Provider Advanced Practice Midwife; Visit Provider Advanced Practice Midwife
DX: O99.824 Streptococcus B carrier state complicating childbirth (principal); O36.8130 Decreased fetal movements, third trimester, not applicable or unspecified; Z3A.39 39 weeks gestation of pregnancy; O26.893 Other specified pregnancy related conditions, third trimester; L29.9 Pruritus, unspecified; O13.4 Gestational [pregnancy-induced] hypertension without significant proteinuria, complicating childbirth; O77.0 Labor and delivery complicated by meconium in amniotic fluid; O63.1 Prolonged second stage (of labor); O71.82 Other specified trauma to perineum and vulva; O71.7 Obstetric hematoma of pelvis; O70.1 Second degree perineal laceration during delivery; Z37.0 Single live birth
CPT/HCPCS: 01967; 36415; 59025; 59200; 81003; 82565; 82570; 84112; 84156; 84450; 84460; 84520; 85025; 85027; 86592; 86850; 86900; 86901; 88307; G0463; A9270; C1726; J0290; J0665; J2003; J2270; J2371; J2405; J2795; J3010; J7120

== ENCOUNTER 2024-05-22 12:30 | Outpatient (CLI) | payer BC, SELFPAY | END 2024-05-22 12:31 | disposition home or self-care (01) | PROVIDERS: Visit Provider Advanced Practice Midwife | DX: Z12.4 Encounter for screening for malignant neoplasm of cervix (principal); Z39.2 Encounter for routine postpartum follow-up | CPT/HCPCS: 87624; 87625; 88141; 88142 ==